=== PATIENT | female | born 1950 | race Caucasian/White ===

== ENCOUNTER 2018-11-20 01:43 | Outpatient (RCR) | payer MEDICARE, OTHER, SELFPAY ==
[2018-10-22 09:20] LABS: Abs Immature Grans 0.03 k/cumm (0.0-0.09); Absolute Basophil Count 0.02 k/cumm (0.0-0.2); Absolute Eosinophil Count 0.19 k/cumm (0.0-0.7); Absolute Lymphocyte Count 1.04 k/cumm (1.2-3.4); Absolute Neutrophil Count 4.91 k/cumm (1.2-6.7); Basophils % 0.3; Eosinophils % 2.8; HCT 38.3 % (36.0-46.0); HGB 12.5 g/dL (12.0-15.5); Immature Grans % 0.4; Lymphocytes % 15.5; Mean Corp. HGB Concentration 32.6 g/dL (32.0-36.0); Mean Corpuscular Hemoglobin 28.5 pg (27.0-33.0); Mean Corpuscular Volume 87.2 fL (80-95); Monocytes % 7.5; Neutrophils % 73.5; Platelet Count 210 x1000/uL (130-400); RBC 4.39 m/cumm (4.00-5.20); RBC Distribution Width 16.1 % (11.7-14.6); White Blood Cell Count 6.69 k/cumm (4.4-10.8)
[2018-10-22] MEDS: Normal Saline Flush 10 ML SYR IVP (09:26)
[2018-10-22 09:46] LABS: ALT 23 U/L (12-78); AST 18 U/L (15-37); Albumin 2.1 g/dL (3.4-5.0); Alkaline Phosphatase 347 U/L (46-116); Anion Gap 9.5 mmol/L (3-11); BUN 7 mg/dL (7-18); Bilirubin, Total 0.7 mg/dL (0.2-1.0); CO2 25.5 mmol/L (21.0-32.0); Calcium 8.6 mg/dL (8.5-10.1); Chloride 107 mmol/L (98-107); Glucose 231 mg/dL (70-100); Magnesium 1.1 mg/dL (1.8-2.4); Sodium 142 mmol/L (136-145); Total Protein 5.1 g/dL (6.4-8.2)
[2018-10-23 12:42] LABS: CA 19-9 17603 U/mL (<35)
[2018-10-29] MEDS: Normal Saline Flush 10 ML SYR IVP (08:51)
[2018-10-29 09:20] LABS: Abs Immature Grans 0.02 k/cumm (0.0-0.09); Absolute Basophil Count 0.03 k/cumm (0.0-0.2); Absolute Eosinophil Count 0.22 k/cumm (0.0-0.7); Absolute Lymphocyte Count 1.21 k/cumm (1.2-3.4); Absolute Monocyte Count 0.25 k/cumm (0.11-0.7); Absolute Neutrophil Count 3.44 k/cumm (1.2-6.7); Basophils % 0.6; Eosinophils % 4.3; HGB 11.4 g/dL (12.0-15.5); Immature Grans % 0.4; Lymphocytes % 23.4; Mean Corp. HGB Concentration 32.6 g/dL (32.0-36.0); Mean Corpuscular Hemoglobin 28.1 pg (27.0-33.0); Mean Corpuscular Volume 86.4 fL (80-95); Monocytes % 4.8; Neutrophils % 66.5; Platelet Count 152 x1000/uL (130-400); RBC 4.05 m/cumm (4.00-5.20); RBC Distribution Width 15.4 % (11.7-14.6); White Blood Cell Count 5.17 k/cumm (4.4-10.8)
[2018-10-29 09:35] LABS: ALT 26 U/L (12-78); AST 14 U/L (15-37); Albumin 2.2 g/dL (3.4-5.0); Alkaline Phosphatase 234 U/L (46-116); Anion Gap 7.8 mmol/L (3-11); BUN 8 mg/dL (7-18); Bilirubin, Total 0.7 mg/dL (0.2-1.0); CO2 28.2 mmol/L (21.0-32.0); Calcium 9.2 mg/dL (8.5-10.1); Chloride 104 mmol/L (98-107); Estimated GFR 54.81 (mL/min/1.73m2); Glucose 197 mg/dL (70-100); Magnesium 1.4 mg/dL (1.8-2.4); Potassium 3.9 mmol/L (3.5-5.1); Sodium 140 mmol/L (136-145); Total Protein 5.3 g/dL (6.4-8.2)
[2018-11-04] MEDS: Normal Saline Flush 10 ML SYR IVP (08:35)
[2018-11-04 09:03] LABS: Abs Immature Grans 0.01 k/cumm (0.0-0.09); Absolute Basophil Count 0.01 k/cumm (0.0-0.2); Absolute Eosinophil Count 0.11 k/cumm (0.0-0.7); Absolute Lymphocyte Count 0.67 k/cumm (1.2-3.4); Absolute Monocyte Count 0.07 k/cumm (0.11-0.7); Absolute Neutrophil Count 1.65 k/cumm (1.2-6.7); Basophils % 0.4; Eosinophils % 4.4; HGB 9.7 g/dL (12.0-15.5); Immature Grans % 0.4; Lymphocytes % 26.6; Mean Corp. HGB Concentration 32.3 g/dL (32.0-36.0); Mean Corpuscular Hemoglobin 28.3 pg (27.0-33.0); Mean Corpuscular Volume 87.5 fL (80-95); Mean Platelet Volume 10.6 fL (8.0-11.0); Monocytes % 2.8; Neutrophils % 65.4; Platelet Count 106 x1000/uL (130-400); RBC 3.43 m/cumm (4.00-5.20); RBC Distribution Width 15.3 % (11.7-14.6); White Blood Cell Count 2.52 k/cumm (4.4-10.8)
[2018-11-04 09:26] LABS: Anisocytosis 1+
[2018-11-04 10:07] LABS: ALT 33 U/L (12-78); AST 21 U/L (15-37); Albumin 2.2 g/dL (3.4-5.0); Alkaline Phosphatase 236 U/L (46-116); Anion Gap 8.6 mmol/L (3-11); BUN 11 mg/dL (7-18); Bilirubin, Total 0.7 mg/dL (0.2-1.0); CO2 25.4 mmol/L (21.0-32.0); CREATININE 0.89 mg/dL (0.55-1.02); Calcium 9.1 mg/dL (8.5-10.1); Chloride 103 mmol/L (98-107); Glucose 174 mg/dL (70-100); Magnesium 1.4 mg/dL (1.8-2.4); Potassium 3.9 mmol/L (3.5-5.1); Sodium 137 mmol/L (136-145); Total Protein 5.5 g/dL (6.4-8.2)
[2018-11-06 13:55] LABS: CA 19-9 6852 U/mL (<35)
== END 2018-11-20 23:59 | disposition home or self-care (01) ==
LOC: INF 01:43
PROVIDERS: PCP Nurse Practitioner Family; Visit Provider Internal Medicine Hematology & Oncology
DX: C25.0 Malignant neoplasm of head of pancreas (principal); Z45.2 Encounter for adjustment and management of vascular access device
CPT/HCPCS: 36415; 36591; 80053; 96523; 83735; 85025; 86301